=== PATIENT | female | born 1945 | race Caucasian/White ===

== ENCOUNTER → 2017-03-07 | Outpatient (CLI) | payer OTHER ==
[~2017-03-07] MED LIST: INSUINJ12 SC
[2017-03-07 12:36] LABS: ALT/SGPT 25 U/L (12-78); BLOOD UREA NITROGEN 15 mg/dl (7-18); CARBON DIOXIDE 31 mmol/L (21-32); CHLORIDE 101 mmol/L (98-107); CHOLESTEROL 226 mg/dl (0-200); CREATININE 0.87 mg/dl (0.60-1.20); GLUCOSE 138 mg/dl (70-99); POTASSIUM 4.7 mmol/L (3.5-5.1); SODIUM 138 mmol/L (136-145); TRIGLYCERIDES 209 mg/dl (0-150); VERY LOW DENSITY LIPOPROT CALC 42 mg/dl
[2017-03-07 12:45] LABS: ESTIMATED AVERAGE GLUCOSE 140 mg/dl; HA1C FLAG Normal (Normal)
[2017-03-07 12:46] LABS: ALB/GLOB RATIO 1.1 (0.9-2); ALKALINE PHOSPHATASE 84 U/L (45-117); AST/SGOT 15 U/L (15-37); CHOLESTEROL/HDL RATIO 4.7; HDL CHOLESTEROL 48 mg/dl; LDL CHOLESTEROL CALCULATED 136 mg/dl
[2017-03-07 12:49] LABS: CALCIUM 10.2 mg/dl (8.5-10.1)
--- NOTE | 2017-03-14 09:13 | CODING QUERY MEDICAL NECESSITY ---
CQSUPPORTING DIAGNOSIS NEEDED A supporting diagnosis is required for the test/procedure performed on this patient in order for us to be reimbursed by the patient's insurance. Please provide a supporting diagnosis for the following test/procedure listed below next to the test name along with your signature. *If there is no additional diagnosis for this patient that would support the following test/procedure please document that below next to the test/procedure. Test(s)/Procedure(s) that require a supporting diagnosis: DOS 03/07/17 VITAMIN D TEST Provider Signature: Date: Thank you Debbi Ramirez Health Information Management Once completed, please kindly fax back to [phone] For questions please call [phone]
== END | disposition home or self-care (01) ==
LOC: C.LAB1850 10:51
PROVIDERS: ATTEND Nurse Practitioner Family
DX: E10.9 Type 1 diabetes mellitus without complications (principal); E55.9 Vitamin D deficiency, unspecified

== ENCOUNTER → 2017-06-27 | Outpatient (CLI) | payer OTHER ==
[2017-06-28 06:58] LABS: ESTIMATED AVERAGE GLUCOSE 146 mg/dl; HA1C FLAG Normal (Normal)
== END | disposition home or self-care (01) ==
LOC: C.LAB1850 14:19
PROVIDERS: ATTEND Nurse Practitioner Family
DX: E10.9 Type 1 diabetes mellitus without complications (principal); E55.9 Vitamin D deficiency, unspecified

== ENCOUNTER → 2017-10-07 | Outpatient (CLI) | payer OTHER ==
[2017-10-08 06:26] LABS: ESTIMATED AVERAGE GLUCOSE 128 mg/dl; HA1C FLAG Normal (Normal)
== END | disposition home or self-care (01) ==
LOC: C.LAB1850 14:28
PROVIDERS: ATTEND Nurse Practitioner Family
DX: E55.9 Vitamin D deficiency, unspecified (principal)

== ENCOUNTER 2017-11-22 23:26 | Emergency (ER) | payer OTHER ==
[~2017-11-22] VITALS: Ht 167.6 cm; Wt 90.7 kg
[2017-11-22 23:32] VITALS: TEMP 36.6; Ht 167.6 cm; Wt 90.7 kg
--- NOTE | 2017-11-23 00:44 | EMERGENCY ROOM VISIT NOTE ---
History Report prepared by Angelicaibrosio: Radha Hull Under the Supervision of: Dr. Tom Mast D.O. First contact with patient: 23:48 Chief Complaint: FALL Stated Complaint: FELL AND HIT BACK OF HEAD History of Present Illness The patient is a 72 year old female who presents to the Emergency Room with complaints of a fall that occurred prior to arrival. She reports she slipped on ice and hit the back of her head on concrete. She denies any loss of consciousness. She complains of head pain and neck pain, rating her discomfort as a 2/10 in severity. She denies any other injuries. The patient notes she had knee replacement surgery at [facility] in [facility] in August 2017. 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 A total of 10 systems reviewed and were otherwise negative. Past Medical & Surgical Surgical Problems: (1) History of knee replacement Social History Smoking Status: Never Smoker Smokeless Tobacco Use: No Alcohol Use: none Drug Use: none Marital Status: Housing Status: lives with family Occupation Status: retired Current/Historical Medications Scheduled Carvedilol (Coreg), 6.25 MG PO AMPM Lisinopril (Prinivil), 5 MG PO DAILY Allergies Coded Allergies: BEE STING (Verified Allergy, Unknown, UNKNOWN, 11/23/17) Penicillins (Verified Allergy, Unknown, 11/23/17) Physical Exam Vital Signs Date Time Temp Pulse Resp B/P (MAP) Pulse Ox O2 Delivery O2 Flow Rate FiO2 11/23/17 01:23 77 16 136/70 98 11/22/17 23:32 36.6 85 18 171/86 97 Room Air Physical Exam GENERAL: Patient is awake, alert, and in no acute distress. Patient is resting comfortably and showing no signs of anxiety EYES: The conjunctivae are clear. The pupils are round and reactive. EARS, NOSE, MOUTH AND THROAT: There was some swelling and tenderness over the occipital scalp. The nose is without any evidence of any deformity. Mucous membranes are moist tongue is midline NECK: Diffuse tenderness to palpation of the neck, but ROM appeared intact, no step off. RESPIRATORY: Normal respiratory effort is noted there is no evidence of wheezing rhonchi or rales CARDIOVASCULAR: Regular rate and rhythm noted there no murmurs rubs or gallops normal S1 normal S2 GASTROINTESTINAL: The abdomen is soft. Bowel sounds are present in all quadrants. Abdomen is nontender BACK: There was low lumbar spinal tenderness to palpation, ROM appears intact. MUSCULOSKELETAL/EXTREMITIES: There is no evidence of gross deformity full range of motion is noted in the hips and shoulders SKIN: There is no obvious evidence of any rash. There are no petechiae, pallor or cyanosis noted. NEUROLOGIC: Patient is awake alert and oriented x3 strength is symmetric patellar reflexes are 2+ bilaterally Medical Decision & Procedures ER Provider Diagnostic Interpretation: CT the head and cervical spine was obtained in the emergency department. The reports reviewed. Preliminary Findings Only See Final Report For Complete Findings CT HEAD: No ICH, mass effect or edema. No skull fracture. Chronic white matter changes. Small focal dural calcification suspected along the anterior interhemispheric falx. Possible right-sided nasal polyp. Radiologist: Darryl Bermeo M.D. Study ready at 00:16 and initial results transmitted at 00:56 Preliminary Findings Only See Final Report For Complete Findings CT C SPINE: No acute fracture or malalignment. Left-sided facet arthrosis. Partially calcified thyroid nodules. Small paratracheal diverticula. Radiologist: Darryl Bermeo M.D. Study ready at 00:20 and initial results transmitted at 01:06 LUMBAR SPINE X-RAY: Degenerative changes noted, no acute fracture or subluxation, no acute disease noted ED Course 2350: The patient was evaluated in room C10. A complete history and physical examination were performed. 0115: I reevaluated the patient. She is resting comfortably. I discussed her results and discharge instructions and she verbalized complete understanding and agreement. Medical Decision Prior records/ancillary studies reviewed. Triage Nursing notes reviewed. The patient's history was concerning for traumatic injury Differential diagnosis: Etiologies such as fracture, dislocation, intra-abdominal, pneumothorax, intrathoracic , intracranial, neurologic, as well as other traumatic pathologies were entertained. The patient is a 72-year-old female who presented to the emergency department after fall. The patient fell backwards striking her head. She had neck pain as well as lumbar spine pain. The patient was offered pain medication in the emergency department. I discussed the patient's radiographic studies with her. She was encouraged to rest and avoid any strenuous activity. I also encouraged her to call her primary care physician to schedule a follow-up appointment and continue using Motrin and Tylenol as directed for pain. Otherwise she was encouraged to return the emergency department immediately if symptoms change worsen or the need arises. Medication Reconcilliation Current Medication List: was personally reviewed by me Blood Pressure Screening Patient's blood pressure: Elevated blood pressure Blood pressure disposition: Elevated BP felt to be situational Impression Primary Impression: Fall Additional Impressions: Head injury Cervical strain Lumbar strain Scribe Attestation The scribe's documentation has been prepared under my direction and personally reviewed by me in its entirety. I confirm that the note above accurately reflects all work, treatment, procedures, and medical decision making performed by me. Departure Information Dispostion Home / Self-Care Referrals No Doctor, Assigned (PCP) Patient Instructions ED Head Injury Closed, ED Sprain Strain Lumbar, My [facility] Additional Instructions Continue using Motrin and Tylenol as directed for pain. Rest and avoid any strenuous activity. Follow-up with your family for further evaluation. Problem Qualifiers
[2017-11-23] MEDS ORDERED: LISI-729 PO (00:49)
[2017-11-23] MEDS ORDERED: CARV12.52 PO (00:49)
[2017-11-23 01:23] VITALS: BP 136/70; PULSE 77; O2SAT 98
--- NOTE | 2017-11-23 06:13 | DIAGNOSTIC IMAGING REPORT ---
HEAD CT NONCONTRAST CT DOSE: HISTORY: fall TECHNIQUE: Multiaxial CT images of the head were performed without the use of intravenous contrast. Automated exposure control was utilized for this study. A dose lowering technique was utilized adhering to the principles of ALARA. Comparison: None. Findings: A 1 cm right posterior nasal polyp. The mastoid air cells are clear. The calvarium and skull base are intact. The ventricles and sulci are within normal limits. There is no mass, hematoma, midline shift, or acute infarct. Impression: No acute intracranial abnormality. Electronically signed by: Eladio Reynolds M.D. 11/23/2017 6:11 AM Dictated Date/Time: 11/23/2017 6:07 AM
--- NOTE | 2017-11-23 06:16 | DIAGNOSTIC IMAGING REPORT ---
CERVICAL SPINE CT CT DOSE: 1068.19 mGy.cm HISTORY: fall TECHNIQUE: Multiaxial CT images of the cervical spine were performed and reformatted in the sagittal and coronal plane without the use of contrast. A dose lowering technique was utilized adhering to the principles of ALARA. COMPARISON: None. FINDINGS: No fractures. No subluxation. Prevertebral soft tissues and the C1-C2 interval are intact. No pneumothorax. Left-sided facet arthrosis. A few thyroid nodules with the largest on the left measuring 11 mm. Small peritracheal diverticula. IMPRESSION: No fractures within the cervical spine. Electronically signed by: Eladio Reynolds M.D. 11/23/2017 6:15 AM Dictated Date/Time: 11/23/2017 6:12 AM
--- NOTE | 2017-11-23 07:28 | DIAGNOSTIC IMAGING REPORT ---
LUMBAR SPINE 5 VIEWS HISTORY: Low back pain. fall COMPARISON: None. FINDINGS: There is no fracture. No subluxation. Mild disc space narrowing at L2-L3, L3-L4, and L5-S1. Moderate facet degenerative changes within the lower lumbar spine. The sacrum appears intact. IMPRESSION: No fracture or subluxation within the lumbar spine. Electronically signed by: Eladio Reynolds M.D. 11/23/2017 7:27 AM Dictated Date/Time: 11/23/2017 7:23 AM
== END 2017-11-23 01:23 | disposition home or self-care (01) ==
LOC: C.EDB 23:27 → C.EDC 11-23 01:23
DX: S09.90XA Unspecified injury of head, initial encounter (principal); S16.1XXA Strain of muscle, fascia and tendon at neck level, initial encounter; S39.012A Strain of muscle, fascia and tendon of lower back, initial encounter; W00.0XXA Fall on same level due to ice and snow, initial encounter; Z96.659 Presence of unspecified artificial knee joint

== ENCOUNTER → 2018-02-12 | Outpatient (CLI) | payer OTHER ==
[~2018-02-12] MED LIST changes: +CARV12.52 PO; -INSUINJ12 SC; +LISI-729 PO
--- NOTE | 2018-02-12 11:38 | DIAGNOSTIC IMAGING REPORT ---
THYROID ULTRASONOGRAPHY CLINICAL HISTORY: E04.2 multinodular thyroid gland COMPARISON STUDY: CT scan dated 11/23/2017 FINDINGS: The right lobe measures 52 x 19 x 15 mm. There are multiple right lobe thyroid nodules. There is a mixed echogenicity circumscribed upper pole nodule measuring 20 x 12 x 11 mm. There is an isoechoic circumscribed wider than tall mid pole nodule measuring 14 x 15 x 8 mm. There is a lower pole mixed echogenicity nodule measuring 13 x 13 x 10 mm. The left lobe measures 57 x 26 x 17 mm. There is a mildly hyperechoic circumscribed wider than tall upper pole nodule measuring 16 x 10 x 9 mm. There is a dense 8 mm calcification. There is a circumscribed mainly hypoechoic 14 x 14 x 13 mm mid pole nodule. There is an equivocal exophytic lower pole nodule measuring 18 x 16 x 13 mm. IMPRESSION: Multiple bilateral thyroid nodules as described above. Electronically signed by: Walter Gonzales M.D. 02/12/2018 11:37 AM Dictated Date/Time: 02/12/2018 11:33 AM
== END | disposition home or self-care (01) ==
LOC: C.ULTR 10:51
PROVIDERS: ATTEND Nurse Practitioner
DX: E04.2 Nontoxic multinodular goiter (principal)

== ENCOUNTER → 2018-03-16 | Outpatient (CLI) | payer OTHER ==
--- NOTE | 2018-03-16 16:40 | DIAGNOSTIC IMAGING REPORT ---
LUMBAR SPINE W/O CONTRAST CLINICAL HISTORY: 72 years-old Female with M54.5,M79.652. Acute low back pain with history of recent fall COMPARISON: Lumbar spine radiographs 11/23/2017. TECHNIQUE: Multiplanar, multi sequence MRI of the lumbar spine was performed without intravenous contrast. FINDINGS: There is partially imaged moderate left and mild right sacral bone marrow edema seen best on the sagittal T2 fat saturated images (see bookmarks) with areas of slightly decreased linear signal on the T1 images suggesting subacute sacral insufficiency fractures. No evidence of acute or subacute fracture of the lumbar spine. Modic type I endplate degenerative changes involve the anterior aspect of L2-L3. Ill-defined indeterminate area of slightly decreased T1 marrow signal measuring 7 mm involves the L2 vertebral body with slightly increased T2 signal. 3 mm anterolisthesis L3 on L4 and L4 on L5 appears chronic in nature, likely secondary to long-standing facet disease. Signal within the imaged thoracic spinal cord appears normal. Conus medullaris terminates at T12-L1. T12-L1: No central canal or neural foraminal stenosis. Mild facet arthrosis. L1-L2: Moderate facet arthrosis and ligamentum flavum thickening. No central canal or foraminal narrowing. L2-L3: Moderate intervertebral disc space narrowing with posterior spondylitic spurring and circumferential annular disc bulge. Ligamentum flavum thickening with moderate facet arthrosis and trace right facet effusion. AP dimension of the thecal sac is narrowed to 7 mm resulting in moderate central canal, moderate right and mild left foraminal narrowing. L3-L4: Moderate intervertebral disc space narrowing with spondylitic spurring and circumferential disc bulge with superimposed central broad-based disc protrusion. Ligament of flavum thickening with small moderate bilateral facet effusions and moderate to severe facet arthrosis. AP dimension of the thecal sac is narrowed to 5 mm resulting in severe central canal stenosis. There is moderate bilateral foraminal narrowing. L4-L5: Moderate intervertebral disc space narrowing with spondylitic spurring, circumferential annular disc bulge with superimposed central/left paracentral disc protrusion. Ligament of flavum thickening with severe facet arthrosis. Thecal sac is narrowed to 6 mm in AP dimension resulting in moderate to severe central canal and moderate bilateral foraminal narrowing. L5-S1: Disc desiccation with mild intervertebral disc space narrowing and spondylitic spurring. Circumferential disc bulge flattens the ventral thecal sac. Ligamentum flavum thickening with trace left facet effusion and moderate to severe facet arthrosis. No central canal narrowing. Mild right foraminal stenosis. Left foramen is patent. IMPRESSION: 1. Partially imaged bone marrow edema involving the left greater than right sacral ala suggest subacute sacral insufficiency fractures. No evidence of acute fracture or subluxation of the lumbar spine. 2. Modic type I endplate degenerative changes at L2-L3. 3. Severe central canal and moderate bilateral foraminal narrowing at L3-L4 secondary to facet arthrosis, ligamentum flavum thickening and discogenic degenerative changes. 4. Additional multilevel degenerative changes as above. The above report was generated using voice recognition software. It may contain grammatical, syntax or spelling errors. Electronically signed by: Ta Martino M.D. 03/16/2018 4:39 PM Dictated Date/Time: 03/16/2018 4:24 PM
== END | disposition home or self-care (01) ==
LOC: C.MRIBC 14:52
PROVIDERS: ATTEND Orthopaedic Surgery
DX: M54.5 Low back pain (principal); M79.651 Pain in right thigh; M79.652 Pain in left thigh; M99.73 Connective tissue and disc stenosis of intervertebral foramina of lumbar region

== ENCOUNTER 2021-10-29 21:15 | Inpatient (IN) ==
[2021-10-29] MEDS ORDERED: SODIUM CHLORIDE 0.9% 1000ML 500 ML IV ONE (21:34)
[2021-10-29 21:49] LABS: Basophils # (auto) 0.02 K/uL (0-0.2); Basophils % (auto) 0.2 %; Hematocrit (blood only) 34.7 % (37-47); Hemoglobin 11.9 g/dL (12.0-16.0); Immature Granulocytes # (auto) 0.02 K/uL (0.00-0.02); Immature Granulocytes % (auto) 0.2 %; Lymphocytes # (auto) 0.82 K/uL (1.2-3.4); Lymphocytes % (auto) 9.8 %; Mean Corpuscular Hemoglobin 28.1 pg (25-34); Mean Corpuscular Hgb Conc 34.3 g/dL (32-36); Mean Corpuscular Volume 81.8 fL (80-100); Mean Platelet Volume 10.7 fL (7.4-10.4); Monocytes # (auto) 0.61 K/uL (0.11-0.59); Monocytes % (auto) 7.3 %; Neutrophils # (auto) 6.93 K/uL (1.4-6.5); Neutrophils % (auto) 82.5 %; Platelet Count 248 K/uL (130-400); RDW Coefficient of Variation 12.6 % (11.5-14.5); RDW Standard Deviation 38.2 fL (36.4-46.3); Red Blood Count 4.24 M/uL (4.2-5.4)
[2021-10-29 21:58] LABS: Appearance Urine Cloudy (Clear); Bacteria Urine Automated 1+ (Negative); Blood Urine Trace (Negative); Color Urine Dark Yellow; Epithelial Cell Urine Auto >30 /lpf (0-5); Glucose Urine UA Negative (Negative); Ketones Urine 1+ (Negative); Leukocyte Esterase Urine 3+ (Negative); Nitrite Urine Negative (Negative); Protein Urine 2+ (Negative); Specific Gravity Urine 1.022 (1.000-1.030); Urobilinogen Urine Negative (Negative); WBC Urine Automated >30 /hpf (0-5)
[2021-10-29 21:59] LABS: Partial Thromboplastin Ratio 0.9; Partial Thromboplastin Time 24.9 Seconds (21.0-31.0); Prothrombin Time 10.3 Seconds (9.0-12.0)
[2021-10-29 22:02] LABS: Bilirubin Urine 1+ (Negative)
[2021-10-29 22:07] LABS: Alanine Aminotransferase 37 (12-78); Albumin Level 2.9 gm/dl (3.4-5.0); Aspartate Aminotransferase 40 U/L (15-37); BUN Creatinine Ratio 19.8 (10-20); Blood Urea Nitrogen 15 mg/dl (7-18); Calcium 8.7 mg/dl (8.5-10.1); Carbon Dioxide 25 mmol/L (21-32); Chloride 92 mmol/L (98-107); Creatinine Clr Calc Pharmacy 72.7 ml/min; Est GFR (African American) 88.9 ml/min; Est GFR (Non-African American) 76.7 ml/min; Glucose 116 mg/dl (70-99); Magnesium 1.9 mg/dl (1.8-2.4); Potassium 3.7 mmol/L (3.5-5.1); Sodium 127 mmol/L (136-145)
[2021-10-29 22:17] LABS: Albumin Globulin Ratio 0.7 (0.9-2); Alkaline Phosphatase 72 U/L (45-117); Bilirubin,Total 0.7 mg/dl (0.2-1); Creatine Kinase 226 U/L (26-192); Total Protein 6.9 gm/dl (6.4-8.2); Troponin I < 0.015 ng/ml (0-0.045)
[2021-10-29] MEDS ORDERED: cefTRIAXone SODIUM 2,000 MG/70 ML BAG IV STA (22:28)
--- NOTE | 2021-10-29 22:32 | Emergency Department Note ---
History of Present Illness General Chief complaint: Illness Stated complaint: Illness Time Seen by Provider: 10/29/21 21:30 History of Present Illness This 76-year-old unvaccinated for Covid presents to the ER complaining of generalized illness and weakness for the past 2 weeks Location: Generalized Quality: Weak Severity: Moderate Duration: 2 weeks Timing: Started 2 weeks ago Context: Patient was concerned and came in Modifying factors: better with rest; worse with activity Patient denies chest pain, dyspnea, abdominal pain, vomiting, diarrhea. No known sick contacts. Home Medications Medication Instructions Recorded Confirmed Type carvedilol 12.5 mg tablet 6.25 mg PO BID 09/04/18 10/29/21 History lisinopril 5 mg tablet 5 mg PO DAILY 09/04/18 10/29/21 History acetaminophen 500 mg tablet 500 mg PO Q6 PRN tab 12/28/19 10/29/21 History cholecalciferol (vitamin D3) 50 4,000 units PO .COMPLEX tab 12/28/19 10/29/21 History mcg (2,000 unit) tablet garlic 1,000 mg capsule 1,000 mg PO DAILY 12/28/19 10/29/21 History magnesium 250 mg tablet 250 - 500 mg PO DAILY tab 12/28/19 10/29/21 History potassium 75 mg tablet 75 mg PO DAILY tab 12/28/19 10/29/21 History turmeric 400 mg capsule 400 mg PO DAILY cap 12/28/19 10/29/21 History blood sugar diagnostic #10 ea 12/29/19 08/24/21 History krill oil 500 mg capsule 500 mg PO DAILY cap 12/29/19 10/29/21 History ascorbic acid (vitamin C) 500 mg 500 mg PO DAILY 09/25/20 10/29/21 History tablet Novolog U-100 Insulin aspart 100 See Rx Instructions .ROUTE 02/26/21 10/29/21 Rx unit/mL subcutaneous solution .COMPLEX 90 Days #60 ml NS (insulin aspart U-100) OneTouch Ultra Blue Test Strip #400 ea NS 02/26/21 10/29/21 Rx (blood sugar diagnostic) Allergies Allergy/AdvReac Type Severity Reaction Status Date / Time bee venom protein (honey bee) Allergy Unknown Unknown Verified 10/29/21 23:04 Penicillins Allergy Unknown Hives Verified 10/29/21 23:04 rosuvastatin AdvReac HIP PAIN Verified 10/29/21 23:05 Past Med/Surg History Medical History Chronic low back pain Diabetes mellitus Dyslipidemia Gait disturbance Hypertension Leg weakness Surgical History History of heart bypass surgery x 2 in 2013 History of knee replacement bilateral Family History Mother Heart disease Father Heart disease Denies family history of Ovarian cancer Prostate cancer Breast cancer Colorectal cancer Social History Smoking Status: Former smoker Hx Alcohol Use: No Hx Substance Use: No Preferred Language: Mohawk marital status: / Current Living Situation: Alone current occupational status: retired Feels Safe at Home: Yes caffeine: Yes Dental Care, Regularly: Yes Physical Activity Frequency: Does not Exercise Seatbelt Use: always Sunscreen Use: Yes Review of Systems A total of 10 systems reviewed and were otherwise negative Physical Exam Vital Signs Vital Signs - 24 hr 10/29/21 21:02 10/29/21 21:24 10/29/21 21:30 Temperature 37.3 C 37.3 C Temperature Source Oral Oral Pulse Rate 75 74 Pulse Rate [Apical] 75 Pulse Rate from SpO2 Sensor 74 Respiratory Rate 18 18 24 Respiratory Effort / Characteristics Blood Pressure 156/75 H 145/72 H Blood Pressure [Right Arm] 156/75 H Blood Pressure Mean 102 96 Blood Pressure Mean [Right Arm] 102 Pulse Oximetry 94 94 95 Oxygen Delivery Method Room Air Room Air Sepsis Recent Fever Within 48 Hours Yes Sepsis New/Unexplained Change in Mental Status N/A Sepsis Action Taken by Nursing No Action Required 10/29/21 21:34 10/29/21 22:00 10/29/21 22:42 Temperature Temperature Source Pulse Rate 71 Pulse Rate [Apical] 73 Pulse Rate from SpO2 Sensor 71 Respiratory Rate 16 18 Respiratory Effort / Characteristics Non-Labored Spontaneous Blood Pressure 132/72 Blood Pressure [Right Arm] 152/79 H Blood Pressure Mean 92 Blood Pressure Mean [Right Arm] 103 Pulse Oximetry 95 93 94 Oxygen Delivery Method Room Air Sepsis Recent Fever Within 48 Hours Sepsis New/Unexplained Change in Mental Status Sepsis Action Taken by Nursing VITALS: Vitals are noted on the nurse's note and reviewed by myself. Vital si gns stable. GENERAL: pleasant female, in no acute distress, nondiaphoretic, well-developed well-nourished. SKIN: The skin was without rashes, erythema, edema, or bruising. There is no tenting of the skin. Capillary reflex less than 2 seconds. HEAD: Normocephalic atraumatic. EARS: External auditory canals clear, EYES: Pupils equal round and reactive to light and accommodation. Conjunctivae without injection, sclerae without icterus. Extraocular movements intact. NOSE: Patent, turbinates without inflammation or discharge. MOUTH: Mucous membranes moist. Pharynx without erythema or exudate. Uvula midline. Airway patent. Tongue does not deviate. NECK: Supple without nuchal rigidity. No lymphadenopathy. No thyromegaly. Cervical spine is nontender. No JVD. HEART: Regular rate and rhythm LUNGS: Clear to auscultation bilaterally without wheezes, rales or rhonchi. No retractions or accessory muscle use. ABDOMEN: Positive bowel sounds x 4. Normal tympanic percussion. Soft, nontender, without masses or organomegaly. Art sign negative. No guarding or rebound tenderness. No CVA tenderness MUSCULOSKELETAL: No muscle atrophy, erythema, or edema noted. NEURO: Patient was alert and oriented to person place and time. Normal sensation to light and sharp touch. No focal neurological deficits. Course Administered Medications Discontinued Medications Sodium Chloride (Nss 1000ml) 500 mls @ 999 mls/hr IV .Q31M ONE Stop: 10/29/21 22:04 Last Infusion: 10/29/21 22:42 Dose: 0 mls/hr Documented by: [id number] Admin: 10/29/21 21:56 Dose: 999 mls/hr Documented by: [id number] Ceftriaxone Sodium (Rocephin) 2,000 mg in 70 mls @ 140 mls/hr IV NOW STA Stop: 10/29/21 22:57 Last Admin: 10/29/21 22:40 Dose: 140 mls/hr Documented by: [id number] Medical Decision Making Medical Records Attestation: I reviewed the patient's medical records. Home Medications Current Medication List: was personally reviewed by me Laboratory Data Attestation: I reviewed the patient's lab results. Result diagrams: 10/29/21 21:30 10/29/21 21:30 Lab Results 10/29/21 10/29/21 10/29/21 Range/Units 21:30 21:30 21:30 WBC 8.40 (4.8-10.8) K/uL RBC 4.24 (4.2-5.4) M/uL Hgb 11.9 L (12.0-16.0) g/dL Hct 34.7 L (37-47) % MCV 81.8 (80-100) fL MCH 28.1 (25-34) pg MCHC 34.3 (32-36) g/dL RDW Std Deviation 38.2 (36.4-46.3) fL RDW Coeff of Cameron 12.6 (11.5-14.5) % Plt Count 248 (130-400) K/uL MPV 10.7 H (7.4-10.4) fL Immature Gran % (Auto) 0.2 % Neut % (Auto) 82.5 % Lymph % (Auto) 9.8 % Austin % (Auto) 7.3 % Eos % (Auto) 0.0 % Baso % (Auto) 0.2 % Neut # (Auto) 6.93 H (1.4-6.5) K/uL Lymph # (Auto) 0.82 L (1.2-3.4) K/uL Austin # (Auto) 0.61 H (0.11-0.59) K/uL Eos # (Auto) 0.00 (0-0.5) K/uL Baso # (Auto) 0.02 (0-0.2) K/uL Immature Gran # (Auto) 0.02 (0.00-0.02) K/uL PT 10.3 (9.0-12.0) Seconds INR 1.0 (0.9-1.1) APTT 24.9 (21.0-31.0) Seconds PTT Ratio 0.9 Sodium 127 L (136-145) mmol/L Potassium 3.7 (3.5-5.1) mmol/L Chloride 92 L (98-107) mmol/L Carbon Dioxide 25 (21-32) mmol/L Anion Gap 10.0 (3-11) BUN 15 (7-18) mg/dl Creatinine 0.76 (0.6-1.2) mg/dl Est Cr Clr Drug Dosing 72.7 ml/min Est GFR ( Amer) 88.9 ml/min Est GFR (Non-Af Amer) 76.7 ml/min BUN/Creatinine Ratio 19.8 (10-20) Glucose 116 H (70-99) mg/dl Lactate (0.4-2.0) mmol/L Calcium 8.7 (8.5-10.1) mg/dl Magnesium 1.9 (1.8-2.4) mg/dl Total Bilirubin 0.7 (0.2-1) mg/dl AST 40 H (15-37) U/L ALT 37 (12-78) Alkaline Phosphatase 72 (45-117) U/L Total Creatine Kinase 226 H (26-192) U/L Troponin I < 0.015 (0-0.045) ng/ml Total Protein 6.9 (6.4-8.2) gm/dl Albumin 2.9 L (3.4-5.0) gm/dl Globulin 4.0 (2.5-4.0) gm/dl Albumin/Globulin Ratio 0.7 L (0.9-2) Procalcitonin (0-0.5) ng/ml TSH 1.120 (0.300-4.500) uIu/ml Urine Color Urine Appearance (Clear) Urine pH (4.5-7.5) Ur Specific Flushing (1.000-1.030) Urine Protein (Negative) Urine Glucose (UA) (Negative) Urine Ketones (Negative) Urine Blood (Negative) Urine Nitrite (Negative) Urine Bilirubin (Negative) Urine Urobilinogen (Negative) Ur Leukocyte Esterase (Negative) Urine WBC (Auto) (0-5) /hpf Urine RBC (Auto) (0-4) /hpf U Hyaline Cast (Auto) (0-5) /lpf U Epithel Cells (Auto) (0-5) /lpf Urine Bacteria (Auto) (Negative) Urine Osmolality (500-800) mOsm/kg Adenovirus (PCR) (NotDetected) B. pertussis DNA (PCR) (NotDetected) B.parapertussis DNA PCR (NotDetected) C. pneumoniae DNA (PCR) (NotDetected) Coronavirus OC43 (PCR) (NotDetected) Coronavirus HKU1 (PCR) (NotDetected) Coronavirus 229E (PCR) (NotDetected) SARS-CoV-2 (PCR) (NotDetected) Coronavirus NL63 (PCR) (NotDetected) Human Metapneumovir PCR (NotDetected) Influenza Type A (PCR) (NotDetected) Influenza Type B (PCR) (NotDetected) M. pneumoniae (PCR) (NotDetected) Parainfluenza 1 (PCR) (NotDetected) Parainfluenza 2 (PCR) (NotDetected) Parainfluenza 3 (PCR) (NotDetected) Parainfluenza 4 (PCR) (NotDetected) RSV (PCR) (NotDetected) Entero/Rhino (PCR) (NotDetected) 10/29/21 10/29/21 10/29/21 Range/Units 21:30 21:30 21:40 WBC (4.8-10.8) K/uL RBC (4.2-5.4) M/uL Hgb (12.0-16.0) g/dL Hct (37-47) % MCV (80-100) fL MCH (25-34) pg MCHC (32-36) g/dL RDW Std Deviation (36.4-46.3) fL RDW Coeff of Cameron (11.5-14.5) % Plt Count (130-400) K/uL MPV (7.4-10.4) fL Immature Gran % (Auto) % Neut % (Auto) % Lymph % (Auto) % Austin % (Auto) % Eos % (Auto) % Baso % (Auto) % Neut # (Auto) (1.4-6.5) K/uL Lymph # (Auto) (1.2-3.4) K/uL Austin # (Auto) (0.11-0.59) K/uL Eos # (Auto) (0-0.5) K/uL Baso # (Auto) (0-0.2) K/uL Immature Gran # (Auto) (0.00-0.02) K/uL PT (9.0-12.0) Seconds INR (0.9-1.1) APTT (21.0-31.0) Seconds PTT Ratio Sodium (136-145) mmol/L Potassium (3.5-5.1) mmol/L Chloride (98-107) mmol/L Carbon Dioxide (21-32) mmol/L Anion Gap (3-11) BUN (7-18) mg/dl Creatinine (0.6-1.2) mg/dl Est Cr Clr Drug Dosing ml/min Est GFR ( Amer) ml/min Est GFR (Non-Af Amer) ml/min BUN/Creatinine Ratio (10-20) Glucose (70-99) mg/dl Lactate (0.4-2.0) mmol/L Calcium (8.5-10.1) mg/dl Magnesium (1.8-2.4) mg/dl Total Bilirubin (0.2-1) mg/dl AST (15-37) U/L ALT (12-78) Alkaline Phosphatase (45-117) U/L Total Creatine Kinase (26-192) U/L Troponin I (0-0.045) ng/ml Total Protein (6.4-8.2) gm/dl Albumin (3.4-5.0) gm/dl Globulin (2.5-4.0) gm/dl Albumin/Globulin Ratio (0.9-2) Procalcitonin < 0.05 (0-0.5) ng/ml TSH (0.300-4.500) uIu/ml Urine Color Dark Yellow Urine Appearance Cloudy A (Clear) Urine pH 6.0 (4.5-7.5) Ur Specific Flushing 1.022 (1.000-1.030) Urine Protein 2+ H (Negative) Urine Glucose (UA) Negative (Negative) Urine Ketones 1+ H (Negative) Urine Blood Trace H (Negative) Urine Nitrite Negative (Negative) Urine Bilirubin 1+ H (Negative) Urine Urobilinogen Negative (Negative) Ur Leukocyte Esterase 3+ H (Negative) Urine WBC (Auto) >30 H (0-5) /hpf Urine RBC (Auto) 5-10 H (0-4) /hpf U Hyaline Cast (Auto) 10-30 H (0-5) /lpf U Epithel Cells (Auto) >30 H (0-5) /lpf Urine Bacteria (Auto) 1+ H (Negative) Urine Osmolality (500-800) mOsm/kg Adenovirus (PCR) Not Detected (NotDetected) B. pertussis DNA (PCR) Not Detected (NotDetected) B.parapertussis DNA PCR Not Detected (NotDetected) C. pneumoniae DNA (PCR) Not Detected (NotDetected) Coronavirus OC43 (PCR) Not Detected (NotDetected) Coronavirus HKU1 (PCR) Not Detected (NotDetected) Coronavirus 229E (PCR) Not Detected (NotDetected) SARS-CoV-2 (PCR) DETECTED A* (NotDetected) Coronavirus NL63 (PCR) Not Detected (NotDetected) Human Metapneumovir PCR Not Detected (NotDetected) Influenza Type A (PCR) Not Detected (NotDetected) Influenza Type B (PCR) Not Detected (NotDetected) M. pneumoniae (PCR) Not Detected (NotDetected) Parainfluenza 1 (PCR) Not Detected (NotDetected) Parainfluenza 2 (PCR) Not Detected (NotDetected) Parainfluenza 3 (PCR) Not Detected (NotDetected) Parainfluenza 4 (PCR) Not Detected (NotDetected) RSV (PCR) Not Detected (NotDetected) Entero/Rhino (PCR) Not Detected (NotDetected) 10/29/21 10/29/21 Range/Units 21:40 22:15 WBC (4.8-10.8) K/uL RBC (4.2-5.4) M/uL Hgb (12.0-16.0) g/dL Hct (37-47) % MCV (80-100) fL MCH (25-34) pg MCHC (32-36) g/dL RDW Std Deviation (36.4-46.3) fL RDW Coeff of Cameron (11.5-14.5) % Plt Count (130-400) K/uL MPV (7.4-10.4) fL Immature Gran % (Auto) % Neut % (Auto) % Lymph % (Auto) % Austin % (Auto) % Eos % (Auto) % Baso % (Auto) % Neut # (Auto) (1.4-6.5) K/uL Lymph # (Auto) (1.2-3.4) K/uL Austin # (Auto) (0.11-0.59) K/uL Eos # (Auto) (0-0.5) K/uL Baso # (Auto) (0-0.2) K/uL Immature Gran # (Auto) (0.00-0.02) K/uL PT (9.0-12.0) Seconds INR (0.9-1.1) APTT (21.0-31.0) Seconds PTT Ratio Sodium (136-145) mmol/L Potassium (3.5-5.1) mmol/L Chloride (98-107) mmol/L Carbon Dioxide (21-32) mmol/L Anion Gap (3-11) BUN (7-18) mg/dl Creatinine (0.6-1.2) mg/dl Est Cr Clr Drug Dosing ml/min Est GFR ( Amer) ml/min Est GFR (Non-Af Amer) ml/min BUN/Creatinine Ratio (10-20) Glucose (70-99) mg/dl Lactate 1.1 (0.4-2.0) mmol/L Calcium (8.5-10.1) mg/dl Magnesium (1.8-2.4) mg/dl Total Bilirubin (0.2-1) mg/dl AST (15-37) U/L ALT (12-78) Alkaline Phosphatase (45-117) U/L Total Creatine Kinase (26-192) U/L Troponin I (0-0.045) ng/ml Total Protein (6.4-8.2) gm/dl Albumin (3.4-5.0) gm/dl Globulin (2.5-4.0) gm/dl Albumin/Globulin Ratio (0.9-2) Procalcitonin (0-0.5) ng/ml TSH (0.300-4.500) uIu/ml Urine Color Urine Appearance (Clear) Urine pH (4.5-7.5) Ur Specific Flushing (1.000-1.030) Urine Protein (Negative) Urine Glucose (UA) (Negative) Urine Ketones (Negative) Urine Blood (Negative) Urine Nitrite (Negative) Urine Bilirubin (Negative) Urine Urobilinogen (Negative) Ur Leukocyte Esterase (Negative) Urine WBC (Auto) (0-5) /hpf Urine RBC (Auto) (0-4) /hpf U Hyaline Cast (Auto) (0-5) /lpf U Epithel Cells (Auto) (0-5) /lpf Urine Bacteria (Auto) (Negative) Urine Osmolality 672 (500-800) mOsm/kg Adenovirus (PCR) (NotDetected) B. pertussis DNA (PCR) (NotDetected) B.parapertussis DNA PCR (NotDetected) C. pneumoniae DNA (PCR) (NotDetected) Coronavirus OC43 (PCR) (NotDetected) Coronavirus HKU1 (PCR) (NotDetected) Coronavirus 229E (PCR) (NotDetected) SARS-CoV-2 (PCR) (NotDetected) Coronavirus NL63 (PCR) (NotDetected) Human Metapneumovir PCR (NotDetected) Influenza Type A (PCR) (NotDetected) Influenza Type B (PCR) (NotDetected) M. pneumoniae (PCR) (NotDetected) Parainfluenza 1 (PCR) (NotDetected) Parainfluenza 2 (PCR) (NotDetected) Parainfluenza 3 (PCR) (NotDetected) Parainfluenza 4 (PCR) (NotDetected) RSV (PCR) (NotDetected) Entero/Rhino (PCR) (NotDetected) Imaging Data Attestation: I personally reviewed and interpreted this imaging study as follows: MDM Narrative Prior records/ancillary studies reviewed and summarized above. Nursing notes reviewed. Additional history obtained from nursing. The patient's history was concerning for generalized illness Differential diagnosis: Etiologies such as metabolic, infection, hypo/hyperglycemia, electrolyte abnorm alities, cardiac sources, intracerebral event, toxicologic, neurologic, as well as others were entertained. Physical examination: As above. ER treatment provided: IV Lock An order was placed for continuous cardiac monitoring. The monitor shows a rate of 60-100 with a sinus rhythm. IV fluids, Rocephin, apap On reassessment the patient felt better. Diagnostics interpretation by me: ECG: Ordered for weakness EKG: Normal sinus, normal intervals, no acute ST-T wave changes, rate of 75. Impression normal sinus rhythm with a Q-wave in the inferior lead interpreted by myself I think arrhythmia is unlikely. EKG shows normal sinus rhythm with no interval abnormalities such as QT prolongation or WPW. There are no findings to suggest Brugada syndrome. Cardiac monitoring in the emergency department reveals no tachycardic or bradycardic dysrhythmia. Hypertrophic cardiomyopathy was considered but there are no clear historical elements pointing toward this. EKG is not suggestive. The QRS voltage is not extremely large and there are no suggestive Q waves. The labs revealed negative troponin, urine concerning for infection and sent for culture. No prior urine culture for review Hyponatremia and osmolarity levels were sent Positive Covid Imaging studies: Chest x-ray with no acute consolidation, pneumothorax or free air per my interpretation Consultation: A consultation was placed with the hospitalist. The case was discussed and diagnostics were reviewed. The patient was evaluated in the ER for further treatment. Exam and history seem consistent with Gwenid who has a UTI and hyponatremic complains of generalized weakness getting worse for the past 2 weeks. Patient was hydrated medicated as above. She will be evaluated for admission. She is not hypoxic. Prior urine culture was reviewed. Medicine was consulted. Patient is agreeable. By the evaluation outlined above emergent etiologies such as cardiac sources, intracerebral event, toxologic, neurologic, abnormalities blood glucose, metabolic, as well as others were deemed relatively unlikely. The pt informed about the findings as listed above. All questions were answered and pleased with the treatment. The chart was completed utilizing [employer] Speech voice recognition software. Grammatical errors, random word insertions, pronoun errors, and incomplete sentences are an occassional consequence of this system due to software limitations, ambient noise, and hardware issues. Any formal questions or concerns about the content, text, or information contained within the body of this dictation should be directly addressed to the physician certified surgical assistant for clarification. Impression & Plan Acute UTI, Acute hyponatremia, Weakness, COVID-19 Discharge Plan Visit Data Chief Complaint: Illness Stated Complaint: Illness ED Provider: Naren Franklin ED Midlevel Provider: Ashli Mayes Discharge Problem: Acute UTI, Acute hyponatremia, Weakness, COVID-19 Patient Disposition: Admitted As Inpatient Condition: Good Forms Stand Alone Forms: [facility] [employer] Prescriptions Prescriptions: No Action Novolog U-100 Insulin aspart 100 unit/mL solution See Rx Instructions .ROUTE .COMPLEX 90 Days Qty: 60 RF: 3 (DME) OneTouch Ultra Blue Test Strip Strip See Rx Instructions miscellaneous .MEDSUPPLY Qty: 400 RF: 3 acetaminophen 500 mg tablet 500 mg PO Q6 PRN (Reason: Pain) RF: 0 garlic 1,000 mg capsule 1,000 mg PO DAILY RF: 0 magnesium 250 mg tablet 250 - 500 mg PO DAILY RF: 0 potassium 75 mg tablet 75 mg PO DAILY RF: 0 turmeric 400 mg capsule 400 mg PO DAILY RF: 0 cholecalciferol (vitamin D3) 50 mcg (2,000 unit) tablet 4,000 units PO .COMPLEX RF: 0 krill oil 500 mg capsule 500 mg PO DAILY RF: 0 (DME) blood sugar diagnostic Strip See Rx Instructions .ROUTE .MEDSUPPLY Qty: 10 RF: 0 ascorbic acid (vitamin C) 500 mg tablet 500 mg PO DAILY RF: 0 carvedilol 12.5 mg tablet 6.25 mg PO BID RF: 0 lisinopril 5 mg tablet 5 mg PO DAILY RF: 0 Referrals Referrals: Malissa Valdes CRNP [Primary Care Provider] -
[2021-10-29 22:47] LABS: Adenovirus PCR Not Detected (NotDetected); Bordetella parapertussis PCR Not Detected (NotDetected); Bordetella pertussis PCR Not Detected (NotDetected); Chlamydia pneumoniae PCR Not Detected (NotDetected); Coronavirus 229E PCR Not Detected (NotDetected); Coronavirus HKU1 PCR Not Detected (NotDetected); Coronavirus NL63 PCR Not Detected (NotDetected); Coronavirus OC43PCR Not Detected (NotDetected); Human Metapneumovirus PCR Not Detected (NotDetected); Influenza A PCR Not Detected (NotDetected); Influenza B PCR Not Detected (NotDetected); Mycoplasma pneumoniae PCR Not Detected (NotDetected); Parainfluenza Virus 1 PCR Not Detected (NotDetected); Parainfluenza Virus 2 PCR Not Detected (NotDetected); Parainfluenza Virus 3 PCR Not Detected (NotDetected); Parainfluenza Virus 4 PCR Not Detected (NotDetected); Respiratory Syncytial VirusPCR Not Detected (NotDetected); Rhinovirus/Enterovirus PCR Not Detected (NotDetected)
[2021-10-29 22:52] LABS: Coronavirus CoV-2 (COVID19)PCR DETECTED (NotDetected)
[2021-10-29] MEDS ORDERED: ACETAMINOPHEN 1,000 MG/100 ML VIAL IV STA (23:06)
--- NOTE | 2021-10-30 00:14 | History & Physical Report ---
Date of Service October 30, 2021 Assessment & Plan (1) Acute hyponatremia: Plan: Acute hyponatremia/SIADH- Sodium 127, serum osmolality 265, urine osmolality 672 Patient did already receive NSS 500 mils from the ED Fluid restriction 1500 cc Sodium chloride 1 g p.o. twice daily Follow laboratory serially (2) SIADH (syndrome of inappropriate ADH production): Plan: See above (3) Acute UTI: Plan: Follow urine culture and sensitivity Received ceftriaxone IV in ED Has reported reaction to penicillin of hives Give levofloxacin 750 mg IV daily (4) COVID-19: Plan: May be causing generalized weakness and debilitation, without significantly affecting oxygenation If no significant improvement in general symptoms as sodium improves, may deserve a trial of dexamethasone in spite of the 2-week time interval (5) Weakness: Plan: Progressive severe generalized weakness- Need possibly be explained by the low sodium and SIADH, along with COVID-19 infection May need PT/OT assessment prior to discharge (6) Dyslipidemia: Plan: Hold krill oil and garlic (7) Arteriosclerotic coronary artery disease: Plan: CAD/hypertension- Continue carvedilol with hold parameters (8) Hypertension: Plan: See above (9) Type 1 diabetes mellitus: Plan: Hold insulin pump due to expected decreased oral intake Placed on Accu-Cheks before meals and at bedtime with NovoLog coverage per scale History of Present Illness Chief Complaint: The patient presents to the emergency department at the origins of her family due to progressively worsening fatigue, generalized weakness, decreased oral intake, and decreased ability to ambulate over the past 2 weeks Primary Care Provider: ELAINA Shankar The patient is a 76-year-old female with a past medical history including metabolic syndrome, obesity, vitamin D deficiency, diabetic retinopathy, diabetes mellitus type 1, seasonal affective disorder, thyroid nodules, hypertension, dyslipidemia, CAD and status post CABG. The patient presents with symptoms as noted above. Significant laboratories: WBC 8.40, hemoglobin 11.9, hematocrit 34.7, sodium 127, glucose 116, CK 226, albumin 2.9, serum osmolality 265, urine osmolality 672. Bio fire negative, except for positive COVID-19 infection Urinalysis shows possible urinary tract infection Patient received ceftriaxone IV, NSS 500 mL, and Tylenol 1 g IV from the ED Allergies Allergy/AdvReac Type Severity Reaction Status Date / Time bee venom protein (honey bee) Allergy Unknown Unknown Verified 10/29/21 23:04 Penicillins Allergy Unknown Hives Verified 10/29/21 23:04 rosuvastatin AdvReac HIP PAIN Verified 10/29/21 23:05 Home Medications Medication Instructions Recorded Confirmed Type carvedilol 12.5 mg tablet 6.25 mg PO BID 09/04/18 10/29/21 History lisinopril 5 mg tablet 5 mg PO DAILY 09/04/18 10/29/21 History acetaminophen 500 mg tablet 500 mg PO Q6 PRN tab 12/28/19 10/29/21 History cholecalciferol (vitamin D3) 50 4,000 units PO .COMPLEX tab 12/28/19 10/29/21 History mcg (2,000 unit) tablet garlic 1,000 mg capsule 1,000 mg PO DAILY 12/28/19 10/29/21 History magnesium 250 mg tablet 250 - 500 mg PO DAILY tab 12/28/19 10/29/21 History potassium 75 mg tablet 75 mg PO DAILY tab 12/28/19 10/29/21 History turmeric 400 mg capsule 400 mg PO DAILY cap 12/28/19 10/29/21 History blood sugar diagnostic #10 ea 12/29/19 08/24/21 History krill oil 500 mg capsule 500 mg PO DAILY cap 12/29/19 10/29/21 History ascorbic acid (vitamin C) 500 mg 500 mg PO DAILY 09/25/20 10/29/21 History tablet Novolog U-100 Insulin aspart 100 See Rx Instructions .ROUTE 02/26/21 10/29/21 Rx unit/mL subcutaneous solution .COMPLEX 90 Days #60 ml NS (insulin aspart U-100) [employer] Ultra Blue Test Strip #400 ea NS 02/26/21 10/29/21 Rx (blood sugar diagnostic) Past Med/Surg History Medical History Chronic low back pain Diabetes mellitus Dyslipidemia Gait disturbance Hypertension Leg weakness Surgical History History of heart bypass surgery x 2 in 2013 History of knee replacement bilateral Family History Mother Heart disease Father Heart disease Denies family history of Ovarian cancer Prostate cancer Breast cancer Colorectal cancer Social History Smoking Status: Former smoker Smoking End Date: 45 years ago; Hx Alcohol Use: No Hx Substance Use: No Preferred Language: Croatian Communication Ability: Effective 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 Beliefs That Will Affect Care: None marital status: / Current Living Situation: Alone current occupational status: retired Other Information That Helps Us Care for You: No Feels Safe at Home: Yes Safety Concerns: Feels Safe At This Time caffeine: Yes Dental Care, Regularly: Yes Physical Activity Frequency: Does not Exercise Seatbelt Use: always Sunscreen Use: Yes Assistive Devices: Denture - Upper, Denture - Lower, Glasses and Walker Review of Systems Review of Systems: The patient denies chest pain, palpitations, shortness of breath, dyspnea on exertion, cough, lower extremity swelling, sore throat, fevers, chills, sweats, nausea, vomiting, diarrhea , constipation, abdominal pain, pelvic pain, blood in urine or stool, dysuria, urinary frequency or urgency, lightheadedness, dizziness, headache, memory loss, loss of consciousness, rash, abnormal bruising or bleeding, focal weakness, numbness or tingling in arms or legs, back or neck pain, or night sweats. The review of systems is otherwise negative other than for that already noted above, and at least 10 systems have been reviewed. Physical Exam Physical Exam: The patient is awake, alert and oriented 3, looks severely fatigued, and atraumatic, lying in bed and in no acute distress. HEENT--PERRL, EOMI, mucous membranes and oropharynx dry. Neck--supple. No JVD. No bruits. Thyroid normal, trachea midline, no adenopathy. Heart--normal S1 and S2. No murmurs, rubs or gallops. Lungs--decreased breath sounds throughout. No respiratory distress, no accessory muscle use. Abdomen--normal bowel sounds and soft. Nontender. Nondistended, no hernias or masses, no organomegaly. Extremities--no cyanosis or clubbing. No edema. Dermatologic--normal skin turgor, normal color, no abnormal lymph nodes, no rash. Neurologic--cranial nerves II through XII grossly intact. Rheumatologic--normal range of motion. Psychiatric--normal affect. Results & Data Results & Data ([facility]) Vital Signs (Past 12 Hours) Vital Signs Temp Pulse Pulse Resp BP BP Pulse Ox 10/30/21 00:03 66 20 100/58 L 95 10/29/21 23:20 36.6 C 69 20 127/61 93 10/29/21 22:42 73 18 152/79 H 94 10/29/21 22:00 71 16 132/72 93 10/29/21 21:34 95 10/29/21 21:30 74 24 145/72 H 95 10/29/21 21:24 37.3 C 75 18 156/75 H 94 10/29/21 21:02 37.3 C 75 18 156/75 H 94 Laboratory Results Laboratory Results WBC 8.40 K/uL (4.8-10.8) 10/29/21 21:30 RBC 4.24 M/uL (4.2-5.4) 10/29/21 21:30 Hgb 11.9 g/dL (12.0-16.0) L 10/29/21 21:30 Hct 34.7 % (37-47) L 10/29/21 21:30 MCV 81.8 fL (80-100) 10/29/21 21:30 MCH 28.1 pg (25-34) 10/29/21 21:30 MCHC 34.3 g/dL (32-36) 10/29/21 21:30 RDW Std Deviation 38.2 fL (36.4-46.3) 10/29/21 21:30 RDW Coeff of Cameron 12.6 % (11.5-14.5) 10/29/21 21:30 Plt Count 248 K/uL (130-400) 10/29/21 21:30 MPV 10.7 fL (7.4-10.4) H 10/29/21 21:30 Immature Gran % (Auto) 0.2 % 10/29/21 21:30 Neut % (Auto) 82.5 % 10/29/21 21:30 Lymph % (Auto) 9.8 % 10/29/21 21:30 Foard % (Auto) 7.3 % 10/29/21 21:30 Eos % (Auto) 0.0 % 10/29/21 21:30 Baso % (Auto) 0.2 % 10/29/21 21:30 Neut # (Auto) 6.93 K/uL (1.4-6.5) H 10/29/21 21:30 Lymph # (Auto) 0.82 K/uL (1.2-3.4) L 10/29/21 21:30 Foard # (Auto) 0.61 K/uL (0.11-0.59) H 10/29/21 21:30 Eos # (Auto) 0.00 K/uL (0-0.5) 10/29/21 21:30 Baso # (Auto) 0.02 K/uL (0-0.2) 10/29/21 21:30 Immature Gran # (Auto) 0.02 K/uL (0.00-0.02) 10/29/21 21:30 PT 10.3 Seconds (9.0-12.0) 10/29/21 21:30 INR 1.0 (0.9-1.1) 10/29/21 21:30 APTT 24.9 Seconds (21.0-31.0) 10/29/21 21:30 PTT Ratio 0.9 10/29/21 21:30 D-Dimer 2680 ug/L FEU (0-500) H* 10/29/21 21:30 Sodium 127 mmol/L (136-145) L 10/29/21 21:30 Potassium 3.7 mmol/L (3.5-5.1) 10/29/21 21:30 Chloride 92 mmol/L (98-107) L 10/29/21 21:30 Carbon Dioxide 25 mmol/L (21-32) 10/29/21 21:30 Anion Gap 10.0 (3-11) 10/29/21 21:30 BUN 15 mg/dl (7-18) 10/29/21 21:30 Creatinine 0.76 mg/dl (0.6-1.2) 10/29/21 21:30 Est Cr Clr Drug Dosing 72.7 ml/min 10/29/21 21:30 Est GFR ( Amer) 88.9 ml/min 10/29/21 21:30 Est GFR (Non-Af Amer) 76.7 ml/min 10/29/21 21:30 BUN/Creatinine Ratio 19.8 (10-20) 10/29/21 21:30 Glucose 116 mg/dl (70-99) H 10/29/21 21:30 POC Glucose 137 mg/dl (70-99) H 10/30/21 02:44 Osmolality 265 mOsm/kg (280-300) L 10/29/21 21:30 Lactate 1.1 mmol/L (0.4-2.0) 10/29/21 22:15 Calcium 8.7 mg/dl (8.5-10.1) 10/29/21 21:30 Magnesium 1.9 mg/dl (1.8-2.4) 10/29/21 21:30 Total Bilirubin 0.7 mg/dl (0.2-1) 10/29/21 21:30 AST 40 U/L (15-37) H 10/29/21 21:30 ALT 37 (12-78) 10/29/21 21:30 Alkaline Phosphatase 72 U/L (45-117) 10/29/21 21:30 Total Creatine Kinase 226 U/L (26-192) H 10/29/21 21:30 Troponin I < 0.015 ng/ml (0-0.045) 10/29/21 21:30 Total Protein 6.9 gm/dl (6.4-8.2) 10/29/21 21:30 Albumin 2.9 gm/dl (3.4-5.0) L 10/29/21 21:30 Globulin 4.0 gm/dl (2.5-4.0) 10/29/21 21:30 Albumin/Globulin Ratio 0.7 (0.9-2) L 10/29/21 21:30 Procalcitonin < 0.05 ng/ml (0-0.5) 10/29/21 21:30 TSH 1.120 uIu/ml (0.300-4.500) 10/29/21 21:30 Urine Color Dark Yellow 10/29/21 21:40 Urine Appearance Cloudy (Clear) A 10/29/21 21:40 Urine pH 6.0 (4.5-7.5) 10/29/21 21:40 Ur Specific Buda 1.022 (1.000-1.030) 10/29/21 21:40 Urine Protein 2+ (Negative) H 10/29/21 21:40 Urine Glucose (UA) Negative (Negative) 10/29/21 21:40 Urine Ketones 1+ (Negative) H 10/29/21 21:40 Urine Blood Trace (Negative) H 10/29/21 21:40 Urine Nitrite Negative (Negative) 10/29/21 21:40 Urine Bilirubin 1+ (Negative) H 10/29/21 21:40 Urine Urobilinogen Negative (Negative) 10/29/21 21:40 Ur Leukocyte Esterase 3+ (Negative) H 10/29/21 21:40 Urine WBC (Auto) >30 /hpf (0-5) H 10/29/21 21:40 Urine RBC (Auto) 5-10 /hpf (0-4) H 10/29/21 21:40 U Hyaline Cast (Auto) 10-30 /lpf (0-5) H 10/29/21 21:40 U Epithel Cells (Auto) >30 /lpf (0-5) H 10/29/21 21:40 Urine Bacteria (Auto) 1+ (Negative) H 10/29/21 21:40 Urine Osmolality 672 mOsm/kg (500-800) 10/29/21 21:40 Adenovirus (PCR) Not Detected (NotDetected) 10/29/21 21:30 B. pertussis DNA (PCR) Not Detected (NotDetected) 10/29/21 21:30 B.parapertussis DNA PCR Not Detected (NotDetected) 10/29/21 21:30 C. pneumoniae DNA (PCR) Not Detected (NotDetected) 10/29/21 21:30 Coronavirus OC43 (PCR) Not Detected (NotDetected) 10/29/21 21:30 Coronavirus HKU1 (PCR) Not Detected (NotDetected) 10/29/21 21:30 Coronavirus 229E (PCR) Not Detected (NotDetected) 10/29/21 21:30 SARS-CoV-2 (PCR) DETECTED (NotDetected) A* 10/29/21 21:30 Coronavirus NL63 (PCR) Not Detected (NotDetected) 10/29/21 21:30 Human Metapneumovir PCR Not Detected (NotDetected) 10/29/21 21:30 Influenza Type A (PCR) Not Detected (NotDetected) 10/29/21 21:30 Influenza Type B (PCR) Not Detected (NotDetected) 10/29/21 21:30 M. pneumoniae (PCR) Not Detected (NotDetected) 10/29/21 21:30 Parainfluenza 1 (PCR) Not Detected (NotDetected) 10/29/21 21:30 Parainfluenza 2 (PCR) Not Detected (NotDetected) 10/29/21 21:30 Parainfluenza 3 (PCR) Not Detected (NotDetected) 10/29/21 21:30 Parainfluenza 4 (PCR) Not Detected (NotDetected) 10/29/21 21:30 RSV (PCR) Not Detected (NotDetected) 10/29/21 21:30 Entero/Rhino (PCR) Not Detected (NotDetected) 10/29/21 21:30 Code Status & VTE Plan Code Status Full code VTE Prophylaxis Plan VTE Prophylaxis will be ordered: Yes PG Care Time/CCT Total # of Minutes Spent Total Time Spent with Patient: Total time spent is greater than 50% in coordination of care (as documented) at patient's floor/unit and/or counseling patient: Coding Level of Care Code 44444 Initial Inpt Care Lvl 3 Diagnoses Acute hyponatremia E87.1 SIADH (syndrome of inappropriate ADH production) E22.2 COVID-19 U07.1 Weakness R53.1 Dyslipidemia E78.5 Hypertension I10 Type 1 diabetes mellitus E10.9 Arteriosclerotic coronary artery disease I25.10 Acute UTI N39.0
--- NOTE | 2021-10-30 00:21 | Emergency Department Note ---
ED Visit Note I have personally evaluated this patient examined her and reviewed the pertinent labs and data. I have discussed the case with Ramona Mayes, the physician registered medical assistant and agree with the plan. Please refer to the PA note. This patient comes in with generalized weakness for about 2 weeks. On my exam, she appears in no distress. Her urine does suggest a UTI and Covid was positive as well. Her sodium was also low. She is not hypoxemic. Given these issues and her weakness I do think she needs to be admitted/observed and reconsult to Dr. Guzman. .
[2021-10-30 01:03] LABS: D Dimer 2680 ug/L FEU (0-500)
[2021-10-30] MEDS ORDERED: GLUCAGON FOR INJ 1 MG VIAL SQ PRN (01:28)
[2021-10-30] MEDS ORDERED: ONDANSETRON INJ 2 MG/ML 2 ML VIAL IV PRN (01:28)
[2021-10-30] MEDS ORDERED: CARBOHYDRATES FOR HYPOGLYCEMIA PO PRN (01:28)
[2021-10-30] MEDS ORDERED: GLUCOSE 40% GEL 15 GM TUBE PO PRN (01:28)
[2021-10-30] MEDS ORDERED: DEXTROSE 50% 50 ML SYRINGE IV PRN (01:28)
[2021-10-30] MEDS ORDERED: GLUCOSE 10 TABS/TUBE PO PRN (01:28)
[2021-10-30] MEDS: levoFLOXacin/D5W 750 MG/150 ML BAG IV SCH (03:13)
[2021-10-30] MEDS: ACETAMINOPHEN 325 MG TAB PO PRN ×3 (03:50→20:45)
--- NOTE | 2021-10-30 07:35 | XRay Report ---
XR chest 1V portable CLINICAL HISTORY: SEPSIS TECHNIQUE: Single frontal radiograph of the chest was obtained. Comparison: Comparison is made to chest one view 09/04/2018 FINDINGS: No lines and tubes are seen. The cardiomediastinal silhouette is normal. The lungs are clear. Left sm all pleural effusion is seen. IMPRESSION: Left pleural effusion is unchanged from prior exam. ACT 112: Negative or not required by law. Electronically signed by: Esteban Parker M.D. 10/30/2021 7:34 AM
[2021-10-30 07:41] LABS: Estimated Average Glucose 148 mg/dl; Hemoglobin A1C 6.8 % (4.5-5.6)
[2021-10-30] MEDS: ENOXAPARIN INJ 40 MG/0.4 ML SYR SQ SCH (08:16)
[2021-10-30] MEDS: SODIUM CHLORIDE 1 GM TABLET PO SCH ×2 (08:16→20:46)
[2021-10-30] MEDS: carvediloL 6.25 MG TAB PO SCH ×2 (08:16→20:46)
[2021-10-30] MEDS: INSULIN ASPART PER UNIT SC SCH ×4 (08:25→20:45)
[2021-10-30 09:34] LABS: BUN Creatinine Ratio 22.1 (10-20); Calcium 8.6 mg/dl (8.5-10.1); Creatinine Clr Calc Pharmacy 95.3 ml/min; Est GFR (African American) 104.5 ml/min; Est GFR (Non-African American) 90.2 ml/min; Potassium 3.5 mmol/L (3.5-5.1)
[2021-10-30 16:32] LABS: Calcium 9.2 mg/dl (8.5-10.1); Creatinine Clr Calc Pharmacy 81.3 ml/min; Est GFR (African American) 99.2 ml/min; Est GFR (Non-African American) 85.6 ml/min; Potassium 3.5 mmol/L (3.5-5.1)
--- NOTE | 2021-10-30 18:30 | Hospitalist Progress Note ---
Date of Service October 30, 2021 Assessment & Plan (1) Acute hyponatremia: Plan: - Suggestive of SIADH - possibly in the setting of pulmonary - COVID? Not on diuretics or SSRIs - Na slowly improving and currently at 132 with recheck in AM - Continue fluid restriction; Continue NaCl tabs BID - likely can D/C tomorrow (2) SIADH (syndrome of inappropriate ADH production): Plan: - See above (3) Acute UTI: Plan: - Follow urine culture and sensitivity - currently pinpoint growth - Received ceftriaxone IV in ED -- Has reported reaction to penicillin of hives - changed to Levofloxacin daily and will continue for now (4) COVID-19: Plan: - May be causing generalized weakness and debilitation, without significantly affecting oxygenation - Has not had any direct respiratory symptoms or known exposures - however progressively getting week over 2 weeks so maybe this was COVID vs other?? Also COVID could be the culprit for the SIADH - Appropriate saturations on RA (5) Weakness: Plan: - Progressive severe generalized weakness- -- Possibly be explained by the low sodium and SIADH, along with COVID-19 infection - PT/OT (6) Dyslipidemia: Plan: - Triglycerides 489/Cholesterol 289 - had hip pain on rosuvastatin - Hold krill oil and garlic (7) Arteriosclerotic coronary artery disease: Plan: - CAD/hypertension- - Continue carvedilol with hold parameters (8) Hypertension: Plan: - See above (9) Type 1 diabetes mellitus: Plan: - Hold insulin pump due to expected decreased oral intake - BSGs appropriate at this time and monitor Plan: CK Elevated: - Mild at 226 and recheck in AM - fluid restrict for now - Daughter states due to weakness she did have to lower her down but did not have a direct fall - COVID can cause some rhabdo as well Elevated D-Dimer: - Suspect in the setting of COVID - is not hypoxic, no tachycardia, no chest pain - low suspicion for PE Admission and Anticipated Discharge Date Admission Date: October 30, 2021 Subjective Patient seen twice today. Seems to be a bit more rested this evening. She was able to sleep some through the afternoon but still feeling weak. Na level is slowly increasing. No respiratory symptoms and maintaining on RA. She reports a limited appetite. She reports chronic pelvic/hip pain but states the Tylenol is helping. Review of Systems Review of Systems: All systems reviewed & are unremarkable except as noted in Subjective Physical Exam Physical Exam: PHYSICAL EXAM General Appearance: WDWN in NAD who is A&O x 3; fatigued HEENT: Head is normocephalic/atraumatic; Hearing grossly intact; Mucous membranes moist Neck: Supple; Trachea midline; Neg JVD Heart: RRR with no M/G/R Lungs: CTA in all lung parsons bilaterally; Respirations unlabored; Neg accessory muscle use Abdomen: Soft, non-tender, non-distended; Positive BS x 4 quadrants Extremities: Neg cyanosis or edema Neurological: Speech clear; Gross motor/sensory function intact; Neg focal neurologic deficits Psychiatric: Appropriate mood/affect Skin: Normal Color; Warm/Dry Results & Data Results & Data ([facility]) Vital Signs (Past 12 Hours) Vital Signs Temp Pulse Pulse Resp BP Pulse Ox 10/30/21 15:46 36.9 C 70 18 120/68 94 10/30/21 14:16 63 10/30/21 11:29 36.7 C 68 18 136/68 92 10/30/21 07:39 60 10/30/21 07:36 36.8 C 63 18 116/68 94 PG Care Time/CCT Total # of Minutes Spent Total Time Spent with Patient: Total time spent is greater than 50% in coordination of care (as documented) at patient's floor/unit and/or counseling patient: Coding Level of Care Code None Diagnoses Acute hyponatremia E87.1 SIADH (syndrome of inappropriate ADH production) E22.2 Acute UTI N39.0 COVID-19 U07.1 Weakness R53.1 Dyslipidemia E78.5 Arteriosclerotic coronary artery disease I25.10 Hypertension I10 Type 1 diabetes mellitus E10.9
[2021-10-31] MEDS: levoFLOXacin/D5W 750 MG/150 ML BAG IV SCH (01:45)
[2021-10-31 07:57] LABS: BUN Creatinine Ratio 14.4 (10-20); Calcium 8.9 mg/dl (8.5-10.1); Creatinine Clr Calc Pharmacy 81.3 ml/min; Est GFR (African American) 99.2 ml/min; Est GFR (Non-African American) 85.6 ml/min; Potassium 3.4 mmol/L (3.5-5.1)
[2021-10-31] MEDS: carvediloL 6.25 MG TAB PO SCH ×2 (08:49→20:53)
[2021-10-31] MEDS: ENOXAPARIN INJ 40 MG/0.4 ML SYR SQ SCH (08:49)
[2021-10-31] MEDS: SODIUM CHLORIDE 1 GM TABLET PO SCH ×2 (08:49→20:55)
[2021-10-31] MEDS: INSULIN ASPART PER UNIT SC SCH ×4 (09:56→20:54)
--- NOTE | 2021-10-31 11:42 | Hospitalist Progress Note ---
Date of Service October 31, 2021 Assessment & Plan (1) Acute hyponatremia: Plan: - Suggestive of SIADH - possibly in the setting of pulmonary - COVID? Not on diuretics or SSRIs - Na slowly improving and currently at 132 with recheck in AM - Continue fluid restriction; Continue NaCl tabs BID - likely can D/C soon (2) SIADH (syndrome of inappropriate ADH production): Plan: - See above (3) Acute UTI: Plan: - Follow urine culture and sensitivity - currently pinpoint growth - Received ceftriaxone IV in ED -- Has reported reaction to penicillin of hives - changed to Levofloxacin daily and will continue for now (4) COVID-19: Plan: - May be causing generalized weakness and debilitation, without significantly affecting oxygenation - Has not had any direct respiratory symptoms (states she only coughs sporadically) or known exposures - however progressively getting weak over 2 weeks so maybe this was COVID vs other?? Also COVID could be the culprit for the SIADH -- Giving the ongoing weakness suspect maybe COVID has been ongoing but cannot tell if this is more of a new finding? - Appropriate saturations on RA - Repeat CXR given low grade fever (5) Weakness: Plan: - Progressive severe generalized weakness- -- Possibly be explained by the low sodium and SIADH, along with COVID-19 infection - PT/OT (6) Dyslipidemia: Plan: - Triglycerides 489/Cholesterol 289 - had hip pain on rosuvastatin - Hold krill oil and garlic (7) Arteriosclerotic coronary artery disease: Plan: - CAD/hypertension- - Continue carvedilol with hold parameters (8) Hypertension: Plan: - See above (9) Type 1 diabetes mellitus: Plan: - Hold insulin pump due to expected decreased oral intake - BSGs appropriate at this time and monitor Plan: CK Elevated: - Mild at 226 and now resolved - Daughter states due to weakness she did have to lower her down but did not have a direct fall - COVID can cause some rhabdo as well Elevated D-Dimer: - Suspect in the setting of COVID - is not hypoxic, no tachycardia, no chest pain - low suspicion for PE Suspect Vasovagal Episode: - Had a few seconds of blank stare and rocking while on the toilet and had a mild fever; came to quickly and was alert and oriented and no episodes since - Reviewed monitor and no pauses or irregular rhythms during that time - Was in the ED for syncope in the past - possibly weakness/vasovagal/fever contributed Disposition: - Continued acute care stay Admission and Anticipated Discharge Date Admission Date: October 30, 2021 Subjective Reports feeling a bit better today. Does objectively look better. She did have an episode around 0300 while sitting on the toilet she just was staring and rocked back and forth but only lasted a few seconds and then was alert and orien jasper. She report she has had syncope in the past that was thought to be vasovagal and she says she was sitting on the BSC for a bit and was also febrile overnight. She reports an sporadic cough but no SOB and has not required O2. No further fevers today. Na holding steady at 132. Still limited appetite. Did have a small emesis with PT today but states he was more just reflux. Review of Systems Review of Systems: All systems reviewed & are unremarkable except as noted in Subjective Physical Exam Physical Exam: PHYSICAL EXAM General Appearance: WDWN in NAD who is A&O x 3; fatigued but a bit less today HEENT: Head is normocephalic/atraumatic; Hearing grossly intact; Mucous membranes moist Neck: Supple; Trachea midline; Neg JVD Heart: RRR with no M/G/R Lungs: CTA predominantly with good air flow; minimal crackles at bases; Respira tions unlabored; Neg accessory muscle use Abdomen: Soft, non-tender, non-distended; Positive BS x 4 quadrants Extremities: Neg cyanosis or edema Neurological: Speech clear; Gross motor/sensory function intact; Neg focal neurologic deficits Psychiatric: Appropriate mood/affect Skin: Normal Color; Warm/Dry Results & Data Results & Data ([facility]) Vital Signs (Past 12 Hours) Vital Signs Temp Pulse Resp BP BP Pulse Ox 10/31/21 11:16 36.5 C 73 20 105/67 93 10/31/21 08:00 37.1 C 72 20 128/70 92 10/31/21 03:32 127/72 10/31/21 03:07 37.6 C H 76 18 129/68 90 PG Care Time/CCT Total # of Minutes Spent Total Time Spent with Patient: Total time spent is greater than 50% in coordination of care (as documented) at patient's floor/unit and/or counseling patient: Coding Level of Care Code 99849 Subseq Hosp Care Lvl 3 Diagnoses Acute hyponatremia E87.1 SIADH (syndrome of inappropriate ADH production) E22.2 Acute UTI N39.0 COVID-19 U07.1 Weakness R53.1 Dyslipidemia E78.5 Arteriosclerotic coronary artery disease I25.10 Hypertension I10 Type 1 diabetes mellitus E10.9
[2021-10-31] MEDS ORDERED: FUROSEMIDE 20 MG TAB PO SCH (11:45)
--- NOTE | 2021-10-31 12:28 | XRay Report ---
XR chest 1V portable CLINICAL HISTORY: Febrile; COVID TECHNIQUE: Single frontal radiograph of the chest was obtained. Comparison: Comparison is made to chest one view 10/29/2021 FINDINGS: No lines and tubes are seen. The cardiomediastinal silhouette is stable. Bilateral lower lung predomi nant airspace opacities are seen. No evidence of pleural effusion or pneumothorax. IMPRESSION: Bilateral lower lung predominant airspace opacities which may represent atelectasis, pneumonia, and/o r aspiration. Findings are slightly more prominent than on the prior exam. ACT 112: Negative or not required by law. Electronically signed by: Esteban Parker M.D. 10/31/2021 12:27 PM
[2021-11-01] MEDS: levoFLOXacin/D5W 750 MG/150 ML BAG IV SCH (01:12)
--- NOTE | 2021-11-01 06:01 | Electrocardiogram Report ---
Test Reason : Blood Pressure : / mmHG Vent. Rate : 075 BPM Atrial Rate : 075 BPM P-R Int : 172 ms QRS Dur : 084 ms QT Int : 376 ms P-R-T Axes : 059 009 068 degrees QTc Int : 419 ms Normal sinus rhythm Possible Anterior infarct (cited on or before 04-SEP-2018) Abnormal ECG When compared with ECG of 04-SEP-2018 20:19, No significant change Confirmed by Edgar Dick ([id number] on 11/01/2021 6:01:16 AM Referred By: REFERRED SELF Confirmed By:Edgar Dick
[2021-11-01 07:08] LABS: Hematocrit (blood only) 32.4 % (37-47); Hemoglobin 10.8 g/dL (12.0-16.0); Mean Corpuscular Hemoglobin 27.1 pg (25-34); Mean Corpuscular Hgb Conc 33.3 g/dL (32-36); Mean Corpuscular Volume 81.4 fL (80-100); Mean Platelet Volume 10.8 fL (7.4-10.4); Platelet Count 328 K/uL (130-400); RDW Coefficient of Variation 12.4 % (11.5-14.5); RDW Standard Deviation 36.8 fL (36.4-46.3); Red Blood Count 3.98 M/uL (4.2-5.4); White Blood Count 6.37 K/uL (4.8-10.8)
[2021-11-01 07:33] LABS: BUN Creatinine Ratio 17.5 (10-20); Calcium 9.2 mg/dl (8.5-10.1); Creatinine Clr Calc Pharmacy 91.5 ml/min; Est GFR (African American) 103.3 ml/min; Est GFR (Non-African American) 89.2 ml/min; Potassium 3.7 mmol/L (3.5-5.1)
[2021-11-01] MEDS: INSULIN ASPART PER UNIT SC SCH ×2 (09:19→14:21)
[2021-11-01] MEDS: ENOXAPARIN INJ 40 MG/0.4 ML SYR SQ SCH (09:19)
[2021-11-01] MEDS: SODIUM CHLORIDE 1 GM TABLET PO SCH (09:20)
[2021-11-01] MEDS: carvediloL 6.25 MG TAB PO SCH (09:20)
--- NOTE | 2021-11-01 17:57 | Discharge Summary ---
Date of Service November 01, 2021 Admission HPI Per Admitting Provider The patient is a 76-year-old female with a past medical history including metabolic syndrome, obesity, vitamin D deficiency, diabetic retinopathy, diabetes mellitus type 1, seasonal affective disorder, thyroid nodules, hypertension, dyslipidemia, CAD and status post CABG. The patient presents with symptoms as noted above. Significant laboratories: WBC 8.40, hemoglobin 11.9, hematocrit 34.7, sodium 127, glucose 116, CK 226, albumin 2.9, serum osmolality 265, urine osmolality 672. Bio fire negative, except for positive COVID-19 infection Urinalysis shows possible urinary tract infection Patient received ceftriaxone IV, NSS 500 mL, and Tylenol 1 g IV from the ED Principal Diagnosis Hyponatremia; COVID-19 Discharge Exam PHYSICAL EXAM General Appearance: WDWN in NAD who is A&O x 3; fatigued but a bit less today HEENT: Head is normocephalic/atraumatic; Hearing grossly intact; Mucous membranes moist Neck: Supple; Trachea midline; Neg JVD Heart: RRR with no M/G/R Lungs: CTA predominantly with good air flow; diminished at bases; Respirations unlabored; Neg accessory muscle use Abdomen: Soft, non-tender, non-distended; Positive BS x 4 quadrants Extremities: Neg cyanosis or edema Neurological: Speech clear; Gross motor/sensory function intact; Neg focal neurologic deficits Psychiatric: Appropriate mood/affect Skin: Normal Color; Warm/Dry Discharge Data Allergies Allergy/AdvReac Type Severity Reaction Status Date / Time bee venom protein (honey bee) Allergy Unknown Unknown Verified 11/06/21 08:49 Penicillins Allergy Unknown Hives Verified 11/06/21 08:49 rosuvastatin AdvReac HIP PAIN Verified 11/06/21 08:49 Consultations 10/29/21 22:58 ED Decision to Admit Stat Ordered Studies Chest X-Ray 10/29/21 21:34 XR chest 1V portable CLINICAL HISTORY: SEPSIS TECHNIQUE: Single frontal radiograph of the chest was obtained. Comparison: Comparison is made to chest one view 09/04/2018 FINDINGS: No lines and tubes are seen. The cardiomediastinal silhouette is normal. The lungs are clear. Left small pleural effusion is seen. IMPRESSION: Left pleural effusion is unchanged from prior exam. ACT 112: Negative or not required by law. Electronically signed by: Esteban Parker M.D. 10/30/2021 7:34 AM Chest X-Ray 10/31/21 11:42 XR chest 1V portable CLINICAL HISTORY: Febrile; COVID TECHNIQUE: Single frontal radiograph of the chest was obtained. Comparison: Comparison is made to chest one view 10/29/2021 FINDINGS: No lines and tubes are seen. The cardiomediastinal silhouette is stable. Bilateral lower lung predominant airspace opacities are seen. No evidence of pleural effusion or pneumothorax. IMPRESSION: Bilateral lower lung predominant airspace opacities which may represent atelectasis, pneumonia, and/or aspiration. Findings are slightly more prominent than on the prior exam. ACT 112: Negative or not required by law. Electronically signed by: Esteban Parker M.D. 10/31/2021 12:27 PM Hospital Course (1) Acute hyponatremia: - Suggestive of SIADH - possibly in the setting of pulmonary - COVID? Not on diuretics or SSRIs - Na slowly improving and currently at 133 and clinically improved (2) SIADH (syndrome of inappropriate ADH production): - See above (3) Acute UTI: - Followed urine culture and sensitivity - currently pinpoint growth - Received ceftriaxone IV in ED -- Has reported reaction to penicillin of hives - changed to Levofloxacin daily and will complete a course (4) COVID-19: - May be causing generalized weakness and debilitation, without significantly affecting oxygenation - Has not had any direct respiratory symptoms (states she only coughs sporadically) or known exposures - however progressively getting weak over 2 weeks so maybe this was COVID vs other?? Also COVID could be the culprit for the SIADH -- Giving the ongoing weakness suspect maybe COVID has been ongoing but cannot tell if this is more of a new finding? Advised her to get seen should SOB develop in case this was a new onset (again suspect this has been going on) - Appropriate saturations on RA - RepeatedCXR given low grade fever - do not suspect bacterial pneumonia however Levaquin for UTI could cross-covera respiratory pathogens (5) Weakness: - Progressive severe generalized weakness- -- Possibly be explained by the low sodium and SIADH, along with COVID-19 infection - Was much improved on discharge. Ambulating independently and less weak per her report (6) Dyslipidemia: - Triglycerides 489/Cholesterol 289 - had hip pain on rosuvastatin - Hold krill oil and garlic (7) Arteriosclerotic coronary artery disease: - CAD/hypertension- - Continue carvedilol with hold parameters (8) Hypertension: - See above (9) Type 1 diabetes mellitus: - Held insulin pump due to expected decreased oral intake - was resumed on D/C CK Elevated: - Mild at 226 and now resolved - Daughter states due to weakness she did have to lower her down but did not have a direct fall - COVID can cause some rhabdo as well Elevated D-Dimer: - Suspect in the setting of COVID - is not hypoxic, no tachycardia, no chest pain - low suspicion for PE Suspect Vasovagal Episode: - Had a few seconds of blank stare and rocking while on the toilet and had a mild fever; came to quickly and was alert and oriented and no episodes since - Reviewed monitor and no pauses or irregular rhythms during that time - Was in the ED for syncope in the past - possibly weakness/vasovagal/fever contributed Disposition: - Discharge home with PCP follow-up Total Time Total Time Spent Total Time Spent (In Minutes): Spent greater than 30 minutes preparing patient for discharge. This includes discussion with patient/family, assessment, intervention, medication recon ciliation, and coordination of care. Discharge Plan Discharge Items Patient Disposition: Home - Self-Care Reason For Visit: UTI, SIADH, HYPONATREMIA, COVID-19 Discharge Diagnosis: Low Salt Level; COVID-19; Urinary Tract Infection Condition on Discharge: Good Activity: Resume your previous activity Non-emergency contact: Primary Care Provider Call non-emergency contact if: you have any medication questions, your symptoms worsen and you have a fever Follow-up/Referrals: Malissa Valdes CRNP [Primary Care Provider] - 11/06/21 10:30 am Diet: Carb Count or DM1 Addtl Attending Provider Instructions: Low Salt Level: - You were admitted for a low salt level. I suspect possibly COVID may have contributed to this as respiratory illness can cause the anti-diuretic hormone in our body to contribute to low salt. Also with not eating as much this can cause a lower salt level. - Thankfully this has come up and as your appetite improves this should stabilize very well. Urinary Tract Infection: - It appears you have a urinary tract infection. We will continue a course of antibiotics to treat this. -- Take Levaquin 750 mg x 3 more days. Start this tomorrow as you had a dose today COVID-19: - It is hard to say when symptoms started but given the weakness, I suspect COVID was the main contributor. Thankfully you did not have much in regards to respiratory symptoms - No current intervention is needed as you do not require oxygen. However, if you feel like your breathing worsens please get checked out as additional treatment may be necessary. It is likely you are in the recovery of it but without being able to pinpoint specific symptoms except fatigue this makes it difficult - In regards to isolation, we usually say you are good after 10 days of symptoms onset so you may be well past this. If there are people who may be at risk for a bad outcome with COVID (cancer, immunocompromised, lung issues) would recommend staying away from them for maybe an additional 10 days to make sure. If anyone you were around start getting symptoms would recommend they get tested. Pending Studies at Discharge: No Stand-Alone Forms: My [facility] [employer], Smoking Cessation Medications and DC Order Prescriptions: Continued Novolog U-100 Insulin aspart 100 unit/mL solution See Rx Instructions .ROUTE .COMPLEX 90 Days Qty: 60 RF: 3 (DME) OneTouch Ultra Blue Test Strip Strip See Rx Instructions miscellaneous .MEDSUPPLY Qty: 400 RF: 3 acetaminophen 500 mg tablet 500 mg PO Q6 PRN (Reason: Pain) RF: 0 garlic 1,000 mg capsule 1,000 mg PO DAILY RF: 0 magnesium 250 mg tablet 250 - 500 mg PO DAILY RF: 0 potassium 75 mg tablet 75 mg PO DAILY RF: 0 turmeric 400 mg capsule 400 mg PO DAILY RF: 0 cholecalciferol (vitamin D3) 50 mcg (2,000 unit) tablet 4,000 units PO .COMPLEX RF: 0 krill oil 500 mg capsule 500 mg PO DAILY RF: 0 (DME) blood sugar diagnostic Strip See Rx Instructions .ROUTE .MEDSUPPLY Qty: 10 RF: 0 ascorbic acid (vitamin C) 500 mg tablet 500 mg PO DAILY RF: 0 carvedilol 12.5 mg tablet 6.25 mg PO BID RF: 0 lisinopril 5 mg tablet 5 mg PO DAILY RF: 0 Discharge Orders: Discharge Order (Routine); Ordered 11/01/21 Ordered By: Mica Fisher/Other Patient Handouts: Managing Type 1 Diabetes Admission Data Admit Date/Time: 10/30/21 00:13 Attending Provider: Esteban Lennon Admit Provider: Fam Alonzo Primary Care Provider: Malissa Valdes Other Providers: Fam Alonzo Other Interventions: Discharge Summary Assessment (RN) Last Done: 11/01/21 16:04 Supervising Physician Co-Signing Physician Notes Attending note: patient seen and examined with Mica Howard PA-C. I agree with her discharge summary. I personally reviewed the labs and imaging findings. patient feeling much better, sodium is up, breathing is stable on room air - SIADH: sodium up to normal - COVID: no hypoxia, no need to treat with dexamethasone - UTI: finish course of Levaquin at home Coding Level of Care Code D/C DAY MANAGEMENT >30 MINS Diagnoses Acute hyponatremia E87.1 SIADH (syndrome of inappropriate ADH production) E22.2 Acute UTI N39.0 COVID-19 U07.1 Weakness R53.1 Dyslipidemia E78.5 Arteriosclerotic coronary artery disease I25.10 Hypertension I10 Type 1 diabetes mellitus E10.9
== END 2021-11-01 18:26 | disposition home or self-care (01) | DRG 643 ==
LOC: ED 21:15 → EDINP 10-30 00:13 → SUATTDRO 10-30 00:13 → 2W 10-30 01:29